=== PATIENT | male | born 1970 | race African-American/Black ===

== ENCOUNTER → 2018-08-25 | Outpatient (CLI) | payer OTHER ==
[~2018-08-25] MED LIST: AMLO-113 PO; ATOR20TA22 PO; ATOR40TA69 PO; DOXA2TAB57 PO; ESCI10TA8 PO; ESCI20TA38 PO; METO100T20 PO; METO50TA19 PO; TRAM-420 PO
--- NOTE | 2018-08-25 12:00 | RADIOLOGY IMAGING REPORT ---
FACILITY: [facility] - [place] PATIENT NAME: Matias Holder : 1970 MR: [id number] V: [id number] EXAM DATE: ORDERING PHYSICIAN: SVETLANA FLORES TECHNOLOGIST: Location: [facility] - [place] Patient: Matias Holder : 1970 Visit/Account:[id number] Date of Sevice: 08/25/2018 KIDNEYS HISTORY: ckd COMPARISON: None. FINDINGS: Kidneys: Right kidney- 10.5 x 5.1 x 5.6 cm with normal parenchymal thickness and echogenicity. Left kidney- 11.2 x 6.1 x 5.0 cm with normal parenchymal thickness and echogenicity. Uniform and symmetric blood flow in each kidney by Doppler ultrasound. Hydronephrosis: None. Bladder: Small post void bladder residual measuring 33 mL. Otherwise negative.. Abdominal aorta and IVC: Patent by Doppler ultrasound. IMPRESSION: 1. No acute findings. No hydronephrosis. 2. Small post void bladder residual. Report Dictated By: Wili Craig MD at 08/25/2018 11:52 AM Report E-Signed By: Wili Craig MD at 08/25/2018 11:55 AM WSN:[email or web address]
== END ==
LOC: US 01:23
PROVIDERS: ATTEND Internal Medicine
DX: I12.9 Hypertensive chronic kidney disease with stage 1 through stage 4 chronic kidney disease, or unspecified chronic kidney disease (principal); N18.9 Chronic kidney disease, unspecified; R51 Headache; G47.33 Obstructive sleep apnea (adult) (pediatric); E78.5 Hyperlipidemia, unspecified
CPT/HCPCS: 76705